=== PATIENT | female | born 1970 | race African-American/Black ===

== ENCOUNTER 2021-06-12 09:49 | Emergency (ER) | payer OTHER ==
[~2021-06-12] VITALS: Ht 167.6 cm; Wt 150.0 kg
[2021-06-12] MEDS ORDERED: IBUPROFEN 600MG TABLET PO STA (10:26)
[2021-06-12 11:11] LABS: CHLORIDE 104 mEq/L (98-107)
[2021-06-12 11:40] LABS: BASOPHILS % 0.6 % (0.0-2.0); EOSINOPHILS % 1.5 % (0.0-5.0); HEMATOCRIT. 43.8 % (36.0-48.0); HEMOGLOBIN. 14.1 g/dL (12.0-16.0); LYMPHOCYTES % 41.8 % (20.0-50.0); MEAN CORPUSCULAR HEMOGLOBIN 27.5 pg (28.0-32.0); MEAN CORPUSCULAR VOLUME 85.1 fL (81.0-99.0); MEAN PLATELET VOLUME 8.9 fl (7.4-10.4); MONOCYTES % 6.8 % (2.0-8.0); NEUTROPHILS % 49.3 % (40.0-76.0); PLATELET 218 x1000/uL (130-400); RED BLOOD CELL COUNT 5.14 mill/uL (4.2-5.4); RED CELL DISTRIBUTION WIDTH 15.4 % (11.6-14.6)
[2021-06-12] MEDS ORDERED: IBUP-2029 MT (13:02)
[2021-06-12 13:10] VITALS: BP 134/62
[2021-06-12 13:21] LABS: CLARITY URINE CLEAR (CLEAR); COLOR URINE YELLOW (YELLOW); KETONES URINE NEGATIVE (NEGATIVE); LEUKOCYTE ESTERASE URINE NEGATIVE (NEGATIVE); NITRITE URINE NEGATIVE (NEGATIVE); OCCULT BLOOD URINE TRACE (NEGATIVE); PROTEIN URINE NEGATIVE (NEGATIVE); UROBILINOGEN URINE 0.2 E.U./dL (0.2-1.0)
== END 2021-06-12 13:31 | disposition home or self-care (01) ==
LOC: ER 09:49
DX: R07.89 Other chest pain (principal); E11.9 Type 2 diabetes mellitus without complications; I10 Essential (primary) hypertension
CPT/HCPCS: 36415; 71045; 80053; 81003; 84484; 85025; 93005; 99285

== ENCOUNTER 2021-08-17 16:10 | Emergency (ER) | payer MEDICAID, OTHER ==
[~2021-08-17] VITALS: Ht 162.6 cm; Wt 65.0 kg
[~2021-08-17 16:10] MED LIST: IBUP-2029 MT
[2021-08-17] MEDS ORDERED: ACETAMINOPHEN 325MG TABLET PO ONE (16:45)
[2021-08-17 21:25] VITALS: BP 132/70
== END 2021-08-17 21:27 | disposition home or self-care (01) ==
LOC: ER 16:10
DX: R68.84 Jaw pain (principal); E11.9 Type 2 diabetes mellitus without complications; E78.00 Pure hypercholesterolemia, unspecified; Y04.0XXA Assault by unarmed brawl or fight, initial encounter; Y93.89 Activity, other specified; Y92.89 Other specified places as the place of occurrence of the external cause; Y99.8 Other external cause status
CPT/HCPCS: 70486; 99284

== ENCOUNTER 2025-01-19 18:50 | Emergency (ER) | payer MEDICAID, OTHER ==
[~2025-01-19] VITALS: Ht 162.6 cm; Wt 68.0 kg
[2025-01-19 18:58] VITALS: O2SAT 100
[2025-01-19] MEDS ORDERED: DICYCLOMINE 10 MG/5 ML ORAL SYR PO STA (19:27)
[2025-01-19] MEDS: MAGNESIUM/ALUMINUM HYDROXIDE/SIMETHICONE 30ML UDC PO STA (19:27)
[2025-01-19] MEDS: ONDANSETRON 4MG ODT PO STA (19:27)
[2025-01-19 19:32] LABS: BASOPHILS % 1.0 % (0.0-2.0); EOSINOPHILS % 1.4 % (0.0-5.0); HEMATOCRIT. 35.4 % (36.0-48.0); HEMOGLOBIN. 11.5 g/dL (12.0-16.0); LYMPHOCYTES % 42.1 % (20.0-50.0); MEAN PLATELET VOLUME 8.9 fl (7.4-10.4); MONOCYTES % 7.2 % (2.0-8.0); NEUTROPHILS % 48.3 % (40.0-76.0); PLATELET 249 x1000/uL (130-400); RED BLOOD CELL COUNT 4.07 mill/uL (4.2-5.4); RED CELL DISTRIBUTION WIDTH 14.6 % (11.6-14.6)
[2025-01-19 19:56] LABS: CREATININE 0.7 mg/dL (0.6-1.0); TROPONIN I HIGH SENSITIVITY 5 ng/L (3.0-34); UREA NITROGEN BLOOD 12 mg/dL (9-23)
[2025-01-19 19:58] LABS: ASPARTATE AMINOTRANSFERASE 17 IU/L (<34); BILIRUBIN DIRECT 0.1 mg/dL (<=3.0)
[2025-01-19 19:59] LABS: BILIRUBIN TOTAL 0.5 mg/dL (0.1-1.0); PROTEIN TOTAL 7.5 g/dL (6.0-8.3)
[2025-01-19] MEDS ORDERED: METH-653 MT (20:10)
[2025-01-19] MEDS ORDERED: IBUP-2029 MT (20:10)
[2025-01-19] MEDS: METHOCARBAMOL 500MG TABLET PO ONE (20:24)
[2025-01-19] MEDS: KETOROLAC 30MG/ML VIAL IM ONE (20:24)
[2025-01-19] MEDS: DICYCLOMINE HCL 10MG CAPSULE PO NR (20:25)
[2025-01-19 21:15] VITALS: BP 144/78; PULSE 74; RESP 16; TEMP 36.8; O2SAT 99
== END 2025-01-19 21:00 | disposition home or self-care (01) ==
LOC: ER 18:50
DX: R07.89 Other chest pain (principal); E11.9 Type 2 diabetes mellitus without complications; E78.00 Pure hypercholesterolemia, unspecified; Z91.148 Patient's other noncompliance with medication regimen for other reason; Z79.899 Other long term (current) drug therapy; Z98.890 Other specified postprocedural states
CPT/HCPCS: 99285; 71045; 80076; 80048; 83690; 85025; 84484; 36415; 93005; 96372; J1885; Q0162